=== PATIENT | male | born 2000 ===

== ENCOUNTER 2024-09-26 11:44 | Emergency (ER) | payer OTHER, SELFPAY ==
[2024-09-26 11:54] VITALS: BP 116/81; PULSE 68; RESP 16; TEMP 36.8; O2SAT 97; BMI 23.7
[2024-09-26 12:00] LABS: Appearance Urine Clear (Clear); Bilirubin Urine Negative (Negative); Blood Urine Trace-lysed (Negative); Color Urine Yellow (Yellow); Glucose Urine Negative (Negative); Ketones Urine Negative (Negative); Leukocyte Esterase Urine Negative (Negative); Nitrite Urine Negative (Negative); Protein Urine 1+ (Negative); Specific Gravity Urine >= 1.030 (1.000-1.030); Urobilinogen Urine 0.2 (0.2-1.0); pH Urine 5.5 (5.0-8.5)
--- NOTE | 2024-09-26 12:10 | ED.GENADULT ---
HPI - General Adult General Chief complaint: Urogenital Problems, Male Stated complaint: needs STD test Time Seen by Provider: 09/26/24 11:50 Source: patient Mode of arrival: ambulatory Limitations: no limitations History of Present Illness HPI narrative: 24-year-old male presenting today with burning at the tip of the penis were a few days. He states that it figueredo when he urinates and sometimes just figueredo when he is not urinating. The discomfort is located at the tip of the penis and does not radiate. He denies any penile discharge. He denies any swollen lymph nodes in the groin that he is aware. He denies any testicular swelling or pain. He denies any rashes. He denies fevers, chills, nausea or vomiting. He states that he has had 2 sexual partners in the last 3 months. He states that he has urine appears slightly darker than usual, no change in order. He denies urinary frequency, urgency. Related Data Home Medications ?Medication ?Instructions ?Recorded ?Confirmed No Known Home Medications 09/26/24 09/26/24 Allergies Allergy/AdvReac Type Severity Reaction Status Date / Time No Known Drug Allergies Allergy Verified 09/26/24 11:54 Review of Systems Status of ROS: Reports: 10 or more systems reviewed and unremarkable except as noted in History and below [employer] [facility] [employer] [facility] Social History Smoking Status: Current every day smoker Do you use any of these nicotine containing products: Vaping Products How often do you have a drink containing alcohol: never AUDIT-C Alcohol total score: 0 Non-prescribed substance use: denies use Exam Narrative: Exam Narrative: Well-nourished well-developed patient in no acute distress. Alert and oriented. Answers questions appropriately. Mood and affect are appropriate. Thoughts are goal oriented and rational. No tangential or magical thinking noted. Patient speaks in full sentences without needing to catch his breath. HEENT: Normocephalic atraumatic. Pupils are equally round reactive to light. Extraocular muscles are intact. Conjunctivae are moist without any icterus noted. Moist mucous membranes. : Normal external male genitalia, circumcised. No penile discharge noted. No inguinal lymphadenopathy. No testicular masses or discomfort. No rashes or erythema at the tip of the penis. Const: Vital Signs, click to edit/add: Vital Signs - 24 hr 11/09/24 11:54 Temperature 98.3 F Pulse Rate [Pulse Oximeter] 68 Respiratory Rate 16 Blood Pressure [Ri ght Upper Arm] 116/81 Pulse Oximetry 97 Oxygen Delivery Me thod Room Air Course Course ED Course: UA was obtained: Did not show obvious signs of infection. We decided to go ahead and treat for chlamydia gonorrhea at this time with ceftriaxone and azithromycin while he was here. Patient did not wish to be tested for any other STDs. Did offer syphilis, hepatitis and HIV testing- patient declined. Vital Signs Vital signs: Initial Vital Signs Temperature 98.3 F 09/26/24 11:54 Temperature Source Temporal Artery Scan 09/26/24 11:54 Pulse Rate 68 09/26/24 11:54 Respiratory Rate 16 09/26/24 11:54 Blood Pressure 116/81 09/26/24 11:54 Blood Pressure Mean 92 09/26/24 11:54 Blood Pressure Position Sitting 09/26/24 11:54 Pulse Oximetry 97 09/26/24 11:54 Oxygen Delivery Method Room Air 09/26/24 11:54 Vital Signs Temperature 98.3 F 09/26/24 11:54 Pulse Rate 68 09/26/24 11:54 Respiratory Rate 16 09/26/24 11:54 Blood Pressure 116/81 09/26/24 11:54 Pulse Oximetry 97 09/26/24 11:54 Oxygen Delivery Method Room Air 09/26/24 11:54 Temperature 98.3 F 09/26/24 11:54 Pulse Rate 68 09/26/24 11:54 Respiratory Rate 16 09/26/24 11:54 Blood Pressure 116/81 09/26/24 11:54 Pulse Oximetry 97 09/26/24 11:54 Oxygen Delivery Method Room Air 09/26/24 11:54 Medical Decision Making MDM Narrative Medical decision making narrative: 24-year-old male with dysuria. Treated per above. Discussed no sexual intercourse for 7 days and having sexual partners tested. Lab Data Lab results reviewed: Yes I reviewed the patient's lab results Labs: Lab Results 09/26/24 Range/Units 11:49 Urine Color Yellow (Yellow) Urine Appearance Clear (Clear) Urine pH 5.5 (5.0-8.5) Ur Specific [place] >= 1.030 (1.000-1.030) Urine Protein 1+ A (Negative) Urine Glucose (UA) Negative (Negative) Urine Ketones Negative (Negative) Urine Blood Trace-lysed A (Negative) Urine Nitrite Negative (Negative) Urine Bilirubin Negative (Negative) Urine Urobilinogen 0.2 (0.2-1.0) Ur Leukocyte Esterase Negative (Negative) Urine RBC 0-2 (0-2) Urine WBC 0-2 (0-5) Ur Squamous Epith Cells Few (None-Few) Other Sediment (None) Urine Bacteria Few A (None) Urine Mucus Few A (None) Discharge Plan Discharge Clinical Impression: Dysuria Additional Instructions: Avoid sexual intercourse for 7 days. Recommend that your sexual partners are tested for sexually transmitted infections. Prescriptions: No Action No Known Home Medications Stand Alone Forms: [facility] Info Instructions
[2024-09-26 12:11] LABS: Bacteria Urine Few; Mucus Urine Few; RBC Urine 0-2 (0-2); Squamous Epithelial Cell Urine Few (None-Few); WBC Urine 0-2 (0-5)
[2024-09-26] MEDS: AZITHROMYCIN 250 MG TABLET 1000 MG PO (12:35)
[2024-09-26] MEDS: LIDOCAINE 1% 5 ml (pf) 5 ML VIAL 1 ML IM (12:36)
[2024-09-26] MEDS: cefTRIAXone 500 MG VIAL IM (12:36)
[2024-09-26 13:47] LABS: Chlamydia DNA Amplified* NOT DETECTED (No Detected); GC DNA Amplified* NOT DETECTED (No Detected)
== END 2024-09-26 12:46 | disposition home or self-care (01) ==
LOC: ED 12:32
PROVIDERS: Emergency Provider Family Medicine
DX: R30.0 Dysuria (principal)
CPT/HCPCS: 81001; 87086; 87491; 87591; 96372; 99283; 99284; A9270; J0696